=== PATIENT | female | born 1935 | race Asian ===

== ENCOUNTER → 2018-06-07 | Outpatient (CLI) | payer MEDICARE, OTHER ==
[~2018-06-07] MED LIST: CLON-570 PO; SIMV-259 PO; TELM20 PO; [UNRECOGNIZED DRUG - CODE] PO
== END | disposition home or self-care (01) ==
LOC: RADPV 10:26
PROVIDERS: ATTEND Internal Medicine
DX: I34.0 Nonrheumatic mitral (valve) insufficiency (principal); R94.31 Abnormal electrocardiogram [ECG] [EKG]
CPT/HCPCS: 93306

== ENCOUNTER 2020-07-16 14:26 | Emergency (ER) | payer MEDICARE, OTHER ==
[~2020-07-16] VITALS: Ht 152.4 cm; Wt 68.2 kg
[~2020-07-16 14:26] MED LIST changes: -CLON-570 PO; +CLON0.1T83 PO
[2020-07-16 15:57] LABS: BASOPHILS % (AUTO) 0.7 % (0.0-2.0); HEMATOCRIT 32.2 % (36-46); HEMOGLOBIN 10.5 g/dL (12.0-16.0); LYMPHOCYTES # (AUTO) 1.7 K/uL (1.0-4.8); LYMPHOCYTES % (AUTO) 28.3 % (22.0-44.0); MEAN CORPUSCULAR HEMOGLOBIN 32.5 pg (26.0-34.0); MEAN CORPUSCULAR HGB CONC 32.5 G/dL (31.0-37.0); MEAN CORPUSCULAR VOLUME 100 fL (80-100); MONOCYTES # (AUTO) 0.6 K/uL (0.1-1.0); MONOCYTES % (AUTO) 9.2 % (2.0-9.0); NEUTROPHILS # (AUTO) 3.7 K/uL (1.8-7.7); NEUTROPHILS % (AUTO) 60.8 % (40.0-70.0); PLATELET COUNT (AUTO) 170 K/uL (150-450); RED BLOOD CELL COUNT(AUTO) 3.22 MIL/uL (4.00-5.20); RED CELL DISTRIBUTION WIDTH 14.8 % (11.5-14.5)
[2020-07-16 16:08] LABS: CALCIUM, TOTAL 9.7 mg/dL (8.8-10.5); CREATININE 1.44 mg/dL (0.60-1.30); POTASSIUM 3.3 mmol/L (3.5-5.1)
[2020-07-16 16:13] LABS: ALBUMIN 3.3 g/dL (3.4-5.0); BILIRUBIN,TOTAL 0.5 mg/dL (0.1-1.0); MAGNESIUM 1.7 mg/dL (1.80-2.40); TOTAL PROTEIN, SERUM 6.2 g/dL (6.4-8.2)
[2020-07-16 16:16] LABS: LACTIC ACID 1.3 mmol/L (0.4-2.0)
[2020-07-16] MEDS ORDERED: POTASSIUM CHLORIDE 10% 40 MEQ/30 ML LIQUID UDCUP PO ONE (16:30)
[2020-07-16] MEDS ORDERED: ASPI-728 PO (16:52)
[2020-07-16] MEDS ORDERED: ROSU20TA23 PO (16:52)
[2020-07-16] MEDS ORDERED: RALO60 PO (16:52)
[2020-07-16] MEDS ORDERED: AMLO-257 PO (16:52)
[2020-07-16] MEDS ORDERED: FOLI1TAB85 PO (16:52)
[2020-07-16] MEDS ORDERED: LOSA50TA37 PO (16:52)
[2020-07-16] MEDS ORDERED: METO-558 PO (16:52)
[2020-07-16] MEDS ORDERED: HYDR-2924 PO (16:52)
[2020-07-16 17:00] VITALS: BP 122/67
== END 2020-07-16 17:03 | disposition home or self-care (01) ==
LOC: EMS 14:37
DX: R60.0 Localized edema (principal); E87.6 Hypokalemia; I12.9 Hypertensive chronic kidney disease with stage 1 through stage 4 chronic kidney disease, or unspecified chronic kidney disease; N18.9 Chronic kidney disease, unspecified; E78.00 Pure hypercholesterolemia, unspecified
CPT/HCPCS: 83605; 83735; 93005; 36415-L1; 36415-TC; 71045-TC